=== PATIENT | female | born 1985 ===

== ENCOUNTER 2020-06-28 10:39 | Outpatient (REF) | payer MEDICAID, SELFPAY ==
[2020-06-29 12:29] LABS: CT PCR NOT DETECTED (Not Detect.); NG PCR NOT DETECTED (Not Detect.)
[2020-06-29 15:29] LABS: BV Int Neg Control Negative (Negative); BV Int Pos Control Positive (Positive)
== END 2020-06-28 10:40 | disposition home or self-care (01) ==
LOC: HO.LAB 10:39
PROVIDERS: PCP Pediatrics; Referring Provider Pediatrics; Visit Provider Advanced Practice Midwife
DX: Z12.4 Encounter for screening for malignant neoplasm of cervix (principal); R10.2 Pelvic and perineal pain; Z20.2 Contact with and (suspected) exposure to infections with a predominantly sexual mode of transmission; N89.8 Other specified noninflammatory disorders of vagina
CPT/HCPCS: 87480; 87491; 87510; 87591; 87660; 99213

== ENCOUNTER 2020-07-31 15:53 | Outpatient (REF) | payer MEDICAID, SELFPAY ==
--- NOTE | 2020-07-31 15:58 | US_ITS ---
EXAMINATION: ULTRASOUND PELVIS COMPLETE. CLINICAL INFORMATION: Pelvic and perineal pain. COMPARISON: None TECHNIQUE: Transabdominal and transvaginal ultrasound the pelvis is performed. FINDINGS: The uterus is heterogeneous, anteverted measuring 8.6 cm in length, 4.6 cm in AP and 5.5 cm wide. Endometrial thickness is 0.4 cm. Right ovary measures 3.5 x 2.8 x 2.5 cm and volume 12.8 mL. There is anechoic cyst measuring 2.2 x 2.1 x 2.2 cm. Left ovary measures 2.4 x 2.0 x 1.5 cm and volume 3.8 mL. There is no free fluid in cul-de-sac. US/US pelvic complete IMPRESSION: Heterogeneous uterus but otherwise unremarkable. Simple cyst right ovary.
--- NOTE | 2020-07-31 15:58 | US_ITS ---
EXAMINATION: ULTRASOUND PELVIS COMPLETE. CLINICAL INFORMATION: Pelvic and perineal pain. COMPARISON: None TECHNIQUE: Transabdominal and transvaginal ultrasound the pelvis is performed. FINDINGS: The uterus is heterogeneous, anteverted measuring 8.6 cm in length, 4.6 cm in AP and 5.5 cm wide. Endometrial thickness is 0.4 cm. Right ovary measures 3.5 x 2.8 x 2.5 cm and volume 12.8 mL. There is anechoic cyst measuring 2.2 x 2.1 x 2.2 cm. Left ovary measures 2.4 x 2.0 x 1.5 cm and volume 3.8 mL. There is no free fluid in cul-de-sac. US/US transvaginal IMPRESSION: Heterogeneous uterus but otherwise unremarkable. Simple cyst right ovary.
== END 2020-07-31 15:54 | disposition home or self-care (01) ==
LOC: HO.US 15:53
PROVIDERS: Visit Provider Advanced Practice Midwife
DX: R10.2 Pelvic and perineal pain (principal)
CPT/HCPCS: 76830; 76856

== ENCOUNTER → 2020-08-09 10:36 | Outpatient (BNVA) | payer MEDICAID, SELFPAY | PROVIDERS: Visit Provider Advanced Practice Midwife | DX: Z76.89 Persons encountering health services in other specified circumstances (principal) ==

== ENCOUNTER → 2020-11-16 08:42 | Outpatient (BNVA) | payer MEDICAID, SELFPAY | PROVIDERS: PCP Pediatrics; Visit Provider Physician Assistant ==

== ENCOUNTER → 2021-02-01 08:11 | Outpatient (BNVA) | payer MEDICAID, SELFPAY | PROVIDERS: PCP Pediatrics; Visit Provider Physician Assistant | DX: E66.9 Obesity, unspecified (principal); Z98.84 Bariatric surgery status ==

== ENCOUNTER 2022-01-30 14:07 | Outpatient (REF) | payer OTHER, SELFPAY ==
[2022-01-30 17:56] LABS: CT PCR NOT DETECTED (Not Detect.); NG PCR NOT DETECTED (Not Detect.)
[2022-01-31 11:09] LABS: BV Int Neg Control Negative (Negative); BV Int Pos Control Positive (Positive)
== END 2022-01-30 14:08 | disposition home or self-care (01) ==
LOC: HO.LAB 14:07
PROVIDERS: Visit Provider Advanced Practice Midwife
DX: N92.0 Excessive and frequent menstruation with regular cycle (principal); N94.6 Dysmenorrhea, unspecified; N89.8 Other specified noninflammatory disorders of vagina; F52.31 Female orgasmic disorder
CPT/HCPCS: 81025; 87480; 87491; 87510; 87591; 87660

== ENCOUNTER 2022-02-20 13:16 | Outpatient (REF) | payer SELFPAY ==
--- NOTE | ~2022-02-20 | US_ITS ---
EXAMINATION: US PELVIS CLINICAL INFORMATION: Excessive and frequent menstruation. COMPARISON: None TECHNIQUE: Ultrasound of the pelvis is performed using both transabdominal and transvaginal transducers along with Doppler. Transvaginal imaging is performed due to inadequate visualization transabdominally. FINDINGS: UTERUS: The uterus is anteverted and measures 9.6 cm in length, 4.7 cm in AP and 5.5 cm in transverse dimension. The double wall endometrial thickness is 0.97 cm. The uterus is smooth in contour and has normal myometrial echogenicity. No visible fibroid. ADNEXA: Both ovaries are visualized. There is normal color flow to the adnexa. There is no ovarian torsion. There is no pelvic ascites or fluid collection. Right ovary measures 2.7 x 1.5 x 2.2 cm and volume 4.6 mL. There is an anechoic cyst in the right adnexa lateral to the ovary measuring 2.3 x 2.2 x 2.6 cm. The ovary is unremarkable. Previously right ovary measured 3.5 x 2.8 x 2.5 cm and volume 12.8 mL. Left ovary measures 2.8 x 1.6 x 1.5 cm and volume 3.5 mL. There is a paraovarian cyst lateral to the ovary measuring 0.6 x 0.6 x 0.6 cm. Previously left ovary measured 2.4 x 2.0 x 1.5 cm and volume 3.8 mL. There is no free fluid in the cul-de-sac. There is no free fluid in the cul-de-sac. US/US pelvic and transvaginal IMPRESSION: Bilateral paraovarian cyst. The ovaries are unremarkable. The uterus is unremarkable. There is no free fluid in cul-de-sac.
== END 2022-02-20 13:17 | disposition home or self-care (01) ==
LOC: HO.HMGCX 13:16
PROVIDERS: Visit Provider Advanced Practice Midwife
DX: N92.0 Excessive and frequent menstruation with regular cycle (principal)
CPT/HCPCS: 76830; 76856

== ENCOUNTER 2022-03-03 08:09 | Outpatient (REF) | payer SELFPAY ==
[2022-03-03 08:55] LABS: Hematocrit 34.2 % (37.0-47.0); Hemoglobin 9.9 g/dl (12.0-16.0); Mean Corpuscular HGB Conc 28.9 g/dl (31.0-35.0); Mean Corpuscular Hemoglobin 22.5 pg (27.0-33.0); Mean Corpuscular Volume 77.7 fL (80.0-98.0); Mean Platelet Volume 10.7 fL (9.4-12.3); Platelet Count 312 X10*3/uL (160-400); Red Cell Distribution Width 15.2 % (11.0-16.0); White Blood Count 6.3 X10*3/uL (4.8-10.8)
[2022-03-03 09:36] LABS: HBc Num1 0.07 S/CO (0.00-0.79); HIV AB/AG Nonreactive (Nonreactive); HIV Num 1 0.09 S/CO (0.00-0.99); Hepatitis B Core Antibody Nonreactive (Nonreactive); ~HepC Num1 0.09 S/CO (0.00-0.79); ~Hepatitis C Antibody Nonreactive (Nonreactive)
[2022-03-03 09:40] LABS: Thyroid Stimulating Hormone 0.39 uIU/mL (0.32-4.0)
[2022-03-03 10:07] LABS: Syphilis Screen Nonreactive (Nonreactive)
== END 2022-03-03 08:10 | disposition home or self-care (01) ==
LOC: HO.LAB 08:09
PROVIDERS: Visit Provider Advanced Practice Midwife
DX: Z11.3 Encounter for screening for infections with a predominantly sexual mode of transmission (principal); Z11.4 Encounter for screening for human immunodeficiency virus [HIV]; Z20.2 Contact with and (suspected) exposure to infections with a predominantly sexual mode of transmission; N92.1 Excessive and frequent menstruation with irregular cycle
CPT/HCPCS: 36415; 84443; 85027; 86704; 86780; 86803; 87389

== ENCOUNTER 2023-07-17 10:00 | Outpatient (AMB) | payer OTHER, SELFPAY ==
--- NOTE | 2023-07-17 08:49 | A.OFFVIS_ITS ---
Intake VS Expanded 07/17/23 10:06 Height 5 ft 6 in Weight 193 lb BMI 31.1 Intake Visit Reasons: VIDEO GBP 02/01/19 Allergies codeine [CODEINE] Allergy (Unknown, Verified 02/27/22 14:02) THROAT SWELLING latex [LATEX] Allergy (Unknown, Verified 02/27/22 14:02) HIVES penicillin V Allergy (Unknown, Verified 02/27/22 14:02) redness and itching Penicillins [PENICILLINS] Allergy (Unknown, Verified 02/27/22 14:02) HIVES pollen extracts [POLLEN] Allergy (Unknown, Verified 02/27/22 14:02) ITCHY EYES, SNEEZING Medication List - Last Reconciled 07/17/23 by Vero Sanabria PA-C amitriptyline 10 mg PO BEDTIME gabapentin 600 mg PO DAILY PRN hydroxyzine HCl 25 mg PO pantoprazole 40 mg PO DAILY HPI HPI Comments History of Present Illness Details Patient is now 4.5 years s/p GBP. 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 No post op labs done for at least 2 years, last hgb February 2023 was 9.9. She states she is at her goal weight -- had multiple plastic surgeries done. Complains of epigastric pain for 2 years, moved back from [place]. Worse with acidic foods, also very stressed she forgets to eat often. Nausea occasionally, will spit up clear fluid from pain. No ETOH, smokes marijuana nightly Wakes 6am and bed at 8pm. Works 7am - 3pm , and sometiems does doubles. 7am - egg, siegel in a wrap. Coffee with 2 cream and 2 sugar 3pm - rice with meat and vegetables - f ist full , 15 minutes. water 6pm - coffee again 7 pm - eats at work - vegetables and robel t Exercise - none PFSH Medical History Hx of obesity Lupus Surgical History H/O neck surgery Hx of cholecystectomy Hx of tonsillectomy Hx of tubal ligation Family History Father Diabetes mellitus Hx of heart disorder Mother High cholesterol Social History Alcohol intake: current Alcohol intake frequency: holidays/special occasions only Female Reproductive History Menstrual Age of Menarche: 10 Assessment & Plan Assessment & Plan (1) Epigastric pain: Code(s): R10.13 - Epigastric pain Plan: 4.5 years s/p GBP, with epigastric pain and poor eating habits. At her goal weight. Post op labs ordered Stop smoking marijuana, edible OK. 85 gram protein per day 7 am - 2 eggs with low carb wrap, 1 turkey sausage-20 - 30 minutes 8 am coffee - 4 oz 11 am - protein shake - 1 hour 3 pm - 3 oz protein, 3 oz vegetable - 20 - 30 minutes 6-7 pm - belizean yogurt or 2 oz protein Restart pantoprazole and carafate. Follow up with me in 1 month, will re-evaluate symptoms at that time.I spent 30 minutes in total speaking with the patient via video conference counseling , reviewing records and charting in patients chart. . (2) Obesity: Code(s): E66.9 - Obesity, unspecified (3) Hx of gastric bypass: Code(s): Z98.84 - Bariatric surgery status Medications: New pantoprazole 40 mg PO DAILY 30 tabs 3RF sucralfate (Carafate) 1 g PO BID 60 tabs 3RF Telehealth Telehealth Location of provider rendering services: practice address Location of patient: address on file Patient Identification confirmed using: Name, : Yes Telehealth method: video Patient verbally consented to treatment: Yes Patient verbally consented to billing insurance company: Yes Patient informed of any privacy concerns related to visit: Yes Coding Level of Care Code Tele Est Pt Level 4 (70654) Diagnoses Epigastric pain R10.13 Obesity E66.9 Hx of gastric bypass Z98.84
[2023-07-17 10:06] VITALS: BMI 31.1
== END 2023-07-17 10:30 | disposition home or self-care (01) ==
LOC: HO.HBS 10:28
PROVIDERS: PCP Internal Medicine; Visit Provider Physician Assistant
DX: R10.13 Epigastric pain (principal); E66.9 Obesity, unspecified; Z98.84 Bariatric surgery status
CPT/HCPCS: 99214

== ENCOUNTER → 2023-07-17 10:00 | Outpatient (BNVA) | payer OTHER, SELFPAY | PROVIDERS: PCP Internal Medicine; Visit Provider Physician Assistant ==

== ENCOUNTER 2023-08-18 10:43 | Outpatient (REF) | payer OTHER, SELFPAY ==
[2023-08-19 06:44] LABS: CT PCR NOT DETECTED (Not Detect.); NG PCR DETECTED (Not Detect.)
[2023-08-19 12:21] LABS: BV Int Neg Control Negative (Negative); BV Int Pos Control Positive (Positive)
[2023-08-21 02:04] LABS: HPV mRNA E6/E7 rflx Not Detected (Not Detected)
== END 2023-08-18 10:44 | disposition home or self-care (01) ==
LOC: HO.LAB 10:43
PROVIDERS: PCP Internal Medicine; Visit Provider Advanced Practice Midwife
DX: Z01.419 Encounter for gynecological examination (general) (routine) without abnormal findings (principal); I25.2 Old myocardial infarction; Z98.84 Bariatric surgery status; Z98.890 Other specified postprocedural states; Z98.51 Tubal ligation status; Z20.2 Contact with and (suspected) exposure to infections with a predominantly sexual mode of transmission; Z79.899 Other long term (current) drug therapy
CPT/HCPCS: 0353U; 87480; 87510; 87624; 87660; 88142; 99396

== ENCOUNTER 2023-08-18 10:43 | Outpatient (AMB) | payer OTHER, SELFPAY ==
[2023-08-18 11:04] VITALS: BP 128/78; BMI 32.6
--- NOTE | 2023-08-18 11:04 | A.OFFVIS_ITS ---
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 Required: No Information Interpreted: clinical only Music Researcher: Music Researcher Present Allergies codeine [CODEINE] Allergy (Unknown, Verified 08/18/23 11:05) THROAT SWELLING latex [LATEX] Allergy (Unknown, Verified 08/18/23 11:05) HIVES penicillin V Allergy (Unknown, Verified 08/18/23 11:05) redness and itching Penicillins [PENICILLINS] Allergy (Unknown, Verified 08/18/23 11:05) HIVES pollen extracts [POLLEN] Allergy (Unknown, Verified 08/18/23 11:05) ITCHY EYES, SNEEZING Medication List - Last Reconciled 08/18/23 by Jennifer Sin CNM amitriptyline 10 mg PO BEDTIME gabapentin 600 mg PO DAILY PRN hydroxyzine HCl 25 mg PO pantoprazole 40 mg PO DAILY sucralfate (Carafate) 1 g PO BID HPI 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 She would like to be checked for STIs she wonders if she has a UTI or a yeast infection she does find herself urinating frequently but then again she holds her urine at work and then she sometimes leaks and that is why she wears panty liners chronically. She does have some white clumpy discharge though she is not really itching per se. She had considered tubal ligation reverrsal but it was only because her current partner does not have children but she has grand children and she has decided she does not want to have it done. [facility] Medical History (Updated 08/18/23 @ 12:36 by Jennifer Sin CNM) Lupus Hx of obesity Surgical History (Updated 08/18/23 @ 12:30 by Jennifer Sin CNM) H/O neck surgery Hx of tubal ligation Hx of cholecystectomy Hx of tonsillectomy Hx of gastric bypass Family History Father Diabetes mellitus Hx of heart disorder Mother High cholesterol Social History Alcohol intake: current Alcohol intake frequency: holidays/special occasions only Female Reproductive History Menstrual Age of Menarche: 10 Date of last menstrual period: 08/04/23 control method: permanent sterilization Total pregnancies: 4 Full term: 4 History of abnormal pap smear: No (2016 neg.) Other: Vagina pink and moist external exam shows evidence of chronic use of panty liners. Cervix multiparous pink moist discharge is clear with some white clumps no evidence of erythema or otherwise abnormal discharge uterus is small anteverted mobile nontender adnexa nontender not enlarged good tone with Kegel. Physical Exam Vital Signs: Last Vital Signs BP 128/78 08/18/23 11:04 BMI result Body Mass Index 32.6 Assessment & Plan Assessment & Plan (1) Potential exposure to STD: Code(s): Z20.2 - Contact with and (suspected) exposure to infections with a predominantly sexual mode of transmission (2) S/P panniculectomy: Comment: March 2022 [place] Code(s): Z98.890 - Other specified postprocedural states (3) S/P brachioplasty: Comment: [place] Code(s): Z98.890 - Other specified postprocedural states (4) Hx of gastric bypass: Code(s): Z98.84 - Bariatric surgery status (5) Hx of tubal ligation: Code(s): Z98.51 - Tubal ligation status (6) Well woman exam with routine gynecological exam: Code(s): Z01.419 - Encounter for gynecological examination (general) (routine) without abnormal findings (7) Cervical cancer screening: Code(s): Z12.4 - Encounter for screening for malignant neoplasm of cervix (8) Hx of acute myocardial infarction: Comment: Patient states it was last month evaluated at [facility]. Cardiac follow-up is pending... On a baby aspirin every day. Code(s): I25.2 - Old myocardial infarction Plan -----Discussed in this visit the following: healthy balanced diet, regular and consistent exercise, getting recommended health screens, doing the best she can for her particular health concerns, kegel exercises, pap smear screening and followup recommendations, mammography screening and SBE, normal changes in cycles in her life stage--- . Mammogram ordered after patient left. Reviewed her consideration of tubal reversal she has decided against it at this point. Stressed the need to take care of her main issues with health status post her heart attack last month. She did have 1 visit with her primary care provider after that but missed a cardiology appointment last week and will reschedule stressed the need to take care of her health. Stressed checking out what exercise she can do after she sees the clothes wringer. She is taking a baby aspirin every day per ER instructions from [facility] Testing ordered for STIs per her request. Reviewed recommendations to not wear panty liners. Patient to observe her urinary symptoms and if she does have symptoms of UTI she should check that out with her primary care provider. Discussed not holding her urine as a routine during work days which is the most common scenario and to try in void for as frequently as she needs to void and to continue doing Kegel's she has good strength with her Kegel's. Discussed that the lifelong strain of being 350 lb for many many years can inherently lead to some pelvic floor weakness but she is doing very well with her Kegel's. Orders: Orders Hepatitis B Surface Antigen Today Z20.2 - Contact with and (suspected) exposure to infections with a predominantly sexual mode of transmission Hepatitis C Antibody Today Z20.2 - Contact with and (suspected) exposure to infections with a predominantly sexual mode of transmission HIV Ab/Ag Today Z20.2 - Contact with and (suspected) exposure to infections with a predominantly sexual mode of transmission Syphilis Screen Today Z20.2 - Contact with and (suspected) exposure to infections with a predominantly sexual mode of transmission MM tomosynthesis screening BI Today Z01.419 - Encounter for gynecological examination (general) (routine) without abnormal findings, Z12.31 - Encounter for screening mammogram for malignant neoplasm of breast, Z12.4 - Encounter for screening for malignant neoplasm of cervix, Z98.51 - Tubal ligation status Coding Level of Care Code Est Pt Prev Care 40-64y(66348) Diagnoses Potential exposure to STD Z20.2 S/P panniculectomy Z98.890 S/P brachioplasty Z98.890 Hx of gastric bypass Z98.84 Hx of tubal ligation Z98.51 Well woman exam with routine gynecological exam Z01.419 Cervical cancer screening Z12.4 Hx of acute myocardial infarction I25.2
== END 2023-08-18 12:17 | disposition home or self-care (01) ==
LOC: HO.HWSM 10:43
PROVIDERS: PCP Internal Medicine; Visit Provider Advanced Practice Midwife
DX: Z01.419 Encounter for gynecological examination (general) (routine) without abnormal findings (principal); Z20.2 Contact with and (suspected) exposure to infections with a predominantly sexual mode of transmission
CPT/HCPCS: 99396

== ENCOUNTER 2023-08-21 09:05 | Outpatient (AMB) | payer OTHER, SELFPAY ==
--- NOTE | 2023-08-25 10:20 | AM.OFFVISNUR ---
Intake Intake Visit Reasons: Treatment for Gonorrhea Intake Note: Pt is here for Gentamicin 240 mg IM once to treat gonorrhea +. Pt is allergic to PCN. Natural Developer Required: No Allergies codeine [CODEINE] Allergy (Unknown, Verified 08/18/23 11:05) THROAT SWELLING latex [LATEX] Allergy (Unknown, Verified 08/18/23 11:05) HIVES penicillin V Allergy (Unknown, Verified 08/18/23 11:05) redness and itching Penicillins [PENICILLINS] Allergy (Unknown, Verified 08/18/23 11:05) HIVES pollen extracts [POLLEN] Allergy (Unknown, Verified 08/18/23 11:05) ITCHY EYES, SNEEZING Is last menstrual period known: Yes Post menopausal: No Patient : No Nursing Note Pt is here on 08/21/23 for Gentamicin injection. Pt needs treatment for NG infection and is allergic to Penicillin. Order is for Gentamicin 240 mg IM x1. Medication received is for 40 mg/ml. Pt received injection which was split into 2--3 ml doses for total dose of 6 mi=128 mg. Pt tolerated injections well and she took her one time dose of Doxycycline 2 gm po x1 dose today. Pt will return for REDD 09/04/23. Pt advised no IC until her partner has been treated as well and both partners have received a neg REDD. Pt verbalizes understanding and agrees with plan. No further questions. 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 120 mg IM RGM 3 mL [id number] 07/07/24 40424-578-15 [employer] 120 mg IM LGM 3 mL [id number] 07/07/24 38513-058-76 [employer] Coding Level of Care Code Established Pt Est Pt Level 1 (66961) Patient Type Established History Problem Focused Medical Decision Making Straight Forward Time Spent (min) 20 Assessment & Plan Assessment & Plan Orders: Orders AMB Gentamicin Injection Patient Supplied 08/21/23 A54.9 - Gonococcal infection, unspecified Medications: Changed From gentamicin 80 mg (2 mL) IM Q8H 6 mL 0RF A54.9 - Gonococcal infection, unspecified To gentamicin 80 mg (2 mL) IM ONCE 6 mL 0RF 1 day A54.9 - Gonococcal infection, unspecified
== END 2023-08-21 12:40 | disposition home or self-care (01) ==
LOC: HO.HWS 09:06
PROVIDERS: PCP Internal Medicine; Visit Provider Advanced Practice Midwife
DX: A54.9 Gonococcal infection, unspecified (principal)

== ENCOUNTER 2023-08-21 09:05 | Outpatient (REF) | payer OTHER, SELFPAY ==
[2023-08-21 12:19] LABS: Syphilis Screen Nonreactive (Nonreactive)
[2023-08-21 12:21] LABS: HBsAGNum1 0.31 S/CO (0.00-0.99); HIV AB/AG Nonreactive (Nonreactive); HIV Num 1 0.05 S/CO (0.00-0.99); Hepatitis B Surface Antigen Negative (Negative); ~HepC Num1 0.14 S/CO (0.00-0.79); ~Hepatitis C Antibody Nonreactive (Nonreactive)
== END 2023-08-21 09:06 | disposition home or self-care (01) ==
LOC: HO.LAB 09:05
PROVIDERS: PCP Internal Medicine; Visit Provider Advanced Practice Midwife
DX: E66.9 Obesity, unspecified (principal); Z71.3 Dietary counseling and surveillance; Z98.84 Bariatric surgery status; Z79.899 Other long term (current) drug therapy; A54.9 Gonococcal infection, unspecified; Z20.2 Contact with and (suspected) exposure to infections with a predominantly sexual mode of transmission
CPT/HCPCS: 36415; 86780; 86803; 87340; 87389; 96372; 99211; J1580

== ENCOUNTER 2023-08-21 10:30 | Outpatient (AMB) | payer OTHER, SELFPAY ==
--- NOTE | 2023-08-21 10:42 | A.OFFVIS_ITS ---
Intake Intake Visit Reasons: (VIDEO) [facility] 02/01/19 Allergies codeine [CODEINE] Allergy (Unknown, Verified 08/18/23 11:05) THROAT SWELLING latex [LATEX] Allergy (Unknown, Verified 08/18/23 11:05) HIVES penicillin V Allergy (Unknown, Verified 08/18/23 11:05) redness and itching Penicillins [PENICILLINS] Allergy (Unknown, Verified 08/18/23 11:05) HIVES pollen extracts [POLLEN] Allergy (Unknown, Verified 08/18/23 11:05) ITCHY EYES, SNEEZING Medication List - Last Reconciled 08/21/23 by Vero Sanabria PA-C amitriptyline 10 mg PO BEDTIME azithromycin 500 mg PO DAILY 1 day gabapentin 600 mg PO DAILY PRN gentamicin 80 mg (2 mL) IM Q8H hydroxyzine HCl 25 mg PO pantoprazole 40 mg PO DAILY sucralfate (Carafate) 1 g PO BID HPI HPI Comments History of Present Illness Details [facility] January 2019. Seen last month with epigastric pain and poor eating habits. Does not have regular housing at present. Does nothave a scale and does not have current weight. Post op labs ordered - will get them drawn today Smoking less marijuana,, stopped coffee, taking pantoprazole and carafat - no further reflux. 85 gram protein per day -- 7 am - Premier RTD shake with coffee in it. 10am - guyanese yogurt 12 - 1pm - skips this 3d, if does eat - has chicken soup with noodles - 4 or 8 oz's ?? 3 pm - fish and vegetables -- ? portion size 6-7 pm - small salad - portion size- veg etables and ranch dressing Exercise - none PFSH Medical History (Updated 08/19/23 @ 16:15 by Jennifer Sin CNM) Lupus Hx of obesity Surgical History (Updated 08/18/23 @ 12:30 by Jennifer Sin CNM) H/O neck surgery Hx of tubal ligation Hx of cholecystectomy Hx of tonsillectomy Hx of gastric bypass Family History Father Diabetes mellitus Hx of heart disorder Mother High cholesterol Social History Alcohol intake: current Alcohol intake frequency: holidays/special occasions only Female Reproductive History Menstrual Age of Menarche: 10 Assessment & Plan Assessment & Plan (1) Obesity: Code(s): E66.9 - Obesity, unspecified Plan: Pt is presently homeless but hopes to have housing in the next few weeks. She will get her labs drawn this week, purchase a smart scale and then start sending me her weights weekly. Meal plan changes - for now measure meals in 8 forks each protien and vegetable. Will discuss more details when she is more stable. Will start exercise routine once she has housing. Next appt with me in 1 month Patient is still obese and is not considered stable at this time. I spent 30 minutes in total speaking with the patient via video conference counseling , reviewing records and charting in patients chart. . (2) Hx of gastric bypass: Code(s): Z98.84 - Bariatric surgery status Plan see above Orders: Orders Hemoglobin A1c Today E66.9 - Obesity, unspecified, Z98.84 - Bariatric surgery status Complete Blood Count Auto Diff Today E66.9 - Obesity, unspecified, Z98.84 - Bariatric surgery status Lipid Panel Today E66.9 - Obesity, unspecified, Z98.84 - Bariatric surgery status IRON PROFILE Today E66.9 - Obesity, unspecified, Z98.84 - Bariatric surgery status Vitamin B12 and Folate Today E66.9 - Obesity, unspecified, Z98.84 - Bariatric surgery status Vitamin A Today E66.9 - Obesity, unspecified, Z98.84 - Bariatric surgery status TSH reflex Free T4 Today E66.9 - Obesity, unspecified, Z98.84 - Bariatric surgery status Insulin Today E66.9 - Obesity, unspecified, Z98.84 - Bariatric surgery status Comprehensive Met. Panel Today E66.9 - Obesity, unspecified, Z98.84 - Bariatric surgery status Zinc Today E66.9 - Obesity, unspecified, Z98.84 - Bariatric surgery status C Reactive Protein Today E66.9 - Obesity, unspecified, Z98.84 - Bariatric surgery status Vitamin B1 Today E66.9 - Obesity, unspecified, Z98.84 - Bariatric surgery status Ferritin Today E66.9 - Obesity, unspecified, Z98.84 - Bariatric surgery status Vitamin D 25-OH Total Today E66.9 - Obesity, unspecified, Z98.84 - Bariatric surgery status Medications: Refilled pantoprazole 40 mg PO DAILY 30 tabs 3RF Telehealth Telehealth Location of provider rendering services: practice address Location of patient: address on file Patient Identification confirmed using: Name, : Yes Telehealth method: voice only Patient verbally consented to treatment: Yes Patient verbally consented to billing insurance company: Yes Patient informed of any privacy concerns related to visit: Yes Coding Level of Care Code Tele Est Pt Level 4 (27389) Diagnoses Obesity E66.9 Hx of gastric bypass Z98.84
== END 2023-08-21 11:03 | disposition home or self-care (01) ==
LOC: HO.HBS 10:54
PROVIDERS: PCP Internal Medicine; Visit Provider Physician Assistant
DX: E66.9 Obesity, unspecified (principal); Z98.84 Bariatric surgery status
CPT/HCPCS: 99214

== ENCOUNTER 2023-08-25 12:30 | Outpatient (REF) | payer OTHER, SELFPAY ==
--- NOTE | ~2023-08-25 | MM_ITS ---
EXAMINATION: MM SCREENING DIGITAL BREAST TOMOSYNTHESIS, BILATERAL CLINICAL INFORMATION: Screening. Asymptomatic. The patient is status post bilateral breast reduction. COMPARISON: Mammography: This study is compared with prior exams dating back to 2020. There are no interval mammograms. TECHNIQUE: Digital breast tomosynthesis is performed in both the craniocaudal and mediolateral oblique views along with computer-aided detection (CAD). Synthesized 2D images are generated from the tomosynthesis. FINDINGS: There are scattered areas of fibroglandular density (ACR BI-RADS breast composition Category b). There are no significant masses, abnormal calcifications, or other abnormalities. Post reduction changes are present in each breast. MM/MM tomosynthesis screening BI IMPRESSION: No mammographic evidence of malignancy. ASSESSMENT: BI-RADS BI-RADS 2 - Benign Findings RECOMMENDATION: Routine annual mammography screening. 1 year F/U This examination should not preclude the clinical evaluation of a suspicious palpable abnormality. This patient's information was entered into a reminder system with a target due date for their next mammogram.
== END 2023-08-25 12:31 | disposition home or self-care (01) ==
LOC: HO.MAMMO 12:30
PROVIDERS: PCP Internal Medicine; Visit Provider Advanced Practice Midwife
DX: Z12.31 Encounter for screening mammogram for malignant neoplasm of breast (principal)
CPT/HCPCS: 77063; 77067

== ENCOUNTER → 2023-08-25 14:30 | Outpatient (BNV) | payer OTHER, SELFPAY | PROVIDERS: PCP Internal Medicine; Visit Provider Radiology Diagnostic Radiology | DX: Z12.31 Encounter for screening mammogram for malignant neoplasm of breast (principal) | CPT/HCPCS: 77063; 77067 ==

== ENCOUNTER 2023-08-26 08:42 | Outpatient (REF) | payer OTHER, SELFPAY ==
[2023-08-26 08:56] LABS: MANUAL DIFF FLAG NO
[2023-08-26 09:08] LABS: Basophils Absolute Auto 0.1 X10*3/uL (0.0-0.2); Basophils Percent Auto 0.9 % (0-2); Eosinophils Absolute Auto 0.2 X10*3/uL (0.0-0.4); Eosinophils Percent Auto 2.3 % (0-4); Hematocrit 32.4 % (37.0-47.0); Hemoglobin 9.5 g/dl (12.0-16.0); Imm Gran Abs Auto 0.02 X10*3/uL (0.00-0.03); Imm Gran Pct Auto 0.3 % (0.0-0.4); Lymphocytes Absolute Auto 2.1 X10*3/uL (1.2-4.9); Lymphocytes Percent Auto 31.9 % (20-40); Mean Corpuscular HGB Conc 29.3 g/dl (31.0-35.0); Mean Corpuscular Hemoglobin 22.1 pg (27.0-33.0); Mean Corpuscular Volume 75.3 fL (80.0-98.0); Mean Platelet Volume 10.5 fL (9.4-12.3); Monocytes Absolute Auto 0.5 X10*3/uL (0.1-1.2); Monocytes Percent Auto 6.9 % (2-11); Neutrophils Absolute Auto 3.8 x10*3/uL (2.0-8.3); Neutrophils Percent Auto 57.7 % (45-73); Platelet Count 288 X10*3/uL (160-400); Red Cell Distribution Width 17.9 % (11.0-16.0); White Blood Count 6.5 X10*3/uL (4.8-10.8)
[2023-08-26 09:22] LABS: Estimated Average Glucose 105 mg/dL; Hemoglobin A1c % 5.3 % (<6.0)
[2023-08-26 09:58] LABS: Alanine Aminotransferase 14 U/L (0-31); Albumin Level 4.1 g/dL (3.5-5.0); Alkaline Phosphatase 79 U/L (39-117); Anion Gap 12 (12-20); Aspartate Amino Transferase 17 U/L (5-31); Bilirubin Total 0.3 mg/dL (0.0-1.0); Blood Urea Nitrogen 10 mg/dL (9-16); C Reactive Protein < 0.10 mg/dL (< or = 0.50); Calcium 9.2 mg/dL (8.4-10.2); Carbon Dioxide 25 mmol/L (22-29); Chloride 108 mmol/L (96-108); Cholesterol 168 mg/dL (<200); Estimated Glomerular Filt Rate > 60; Glucose Random 83 mg/dL (60-115); HDL Cholesterol 51 mg/dL (>40); Iron 19 mcg/dL (30-160); LDL Cholesterol Calculated 96 mg/dL (<100); Percent Iron Saturation 5 % (15-50); Potassium 4.4 mmol/L (3.3-5.1); Sodium 141 mmol/L (135-145); Total Iron Binding Capacity 348 mcg/dL (228-428); Total Protein 7.3 g/dL (6.5-8.0); Triglycerides 105 mg/dL (<150); Unsaturated Iron Binding 329 ug/dL
[2023-08-26 10:02] LABS: Ferritin 8 ng/mL (10-250); Insulin 9 uU/mL (2-29); TSH reflex Free T4 0.42 uIU/mL (0.32-4.0); Vitamin D 25-OH Total 26.2 ng/mL (>30)
[2023-08-26 10:05] LABS: Folate 8.2 ng/mL (> or = 4.0); Vitamin B12 401 pg/mL (200-900)
[2023-08-31 14:58] LABS: Vitamin B1 9 nmol/L (8-30)
[2023-08-31 19:54] LABS: Vitamin A 36 mcg/dL (38-98)
[2023-09-01 16:23] LABS: Zinc 66 mcg/dL (60-130)
== END 2023-08-26 08:43 | disposition home or self-care (01) ==
LOC: HO.LAB 08:42
PROVIDERS: PCP Internal Medicine; Visit Provider Physician Assistant
DX: E66.9 Obesity, unspecified (principal); Z98.84 Bariatric surgery status
CPT/HCPCS: 36415; 80053; 80061; 82306; 82607; 82728; 82746; 83036; 83525; 83540; 84425; 84443; 84590; 84630; 85025; 86140

== ENCOUNTER 2023-09-04 13:17 | Outpatient (REF) | payer OTHER, SELFPAY ==
[2023-09-09 12:41] LABS: CT PCR NOT DETECTED (Not Detect.); NG PCR NOT DETECTED (Not Detect.)
== END 2023-09-04 13:18 | disposition home or self-care (01) ==
LOC: HO.LNP 13:17
PROVIDERS: PCP Internal Medicine; Visit Provider Advanced Practice Midwife
DX: Z12.4 Encounter for screening for malignant neoplasm of cervix (principal); A54.9 Gonococcal infection, unspecified; D64.9 Anemia, unspecified; Z98.84 Bariatric surgery status; Z98.890 Other specified postprocedural states; Z71.2 Person consulting for explanation of examination or test findings
CPT/HCPCS: 0353U; 99212

== ENCOUNTER 2023-09-04 13:17 | Outpatient (AMB) | payer OTHER, SELFPAY ==
[2023-09-04 13:20] VITALS: BP 126/80; BMI 32.3
--- NOTE | 2023-09-04 13:20 | MHC.OFFVIS ---
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 Required: No Information Interpreted: non-clinical & clinical Steam Room Attendant: Steam Room Attendant Present (Aidyn) Allergies codeine [CODEINE] Allergy (Unknown, Verified 09/04/23 13:20) THROAT SWELLING latex [LATEX] Allergy (Unknown, Verified 09/04/23 13:20) HIVES penicillin V Allergy (Unknown, Verified 09/04/23 13:20) redness and itching Penicillins [PENICILLINS] Allergy (Unknown, Verified 09/04/23 13:20) HIVES pollen extracts [POLLEN] Allergy (Unknown, Verified 09/04/23 13:20) ITCHY EYES, SNEEZING Medication List - Last Reconciled 09/04/23 by Jennifer Sin CNM amitriptyline 10 mg PO BEDTIME azithromycin 500 mg PO DAILY 1 day cholecalciferol (vitamin D3) 25 mcg PO DAILY gabapentin 600 mg PO DAILY PRN gentamicin 80 mg (2 mL) IM ONCE 1 day hydroxyzine HCl 25 mg PO iron,carbonyl-vitamin C 65 mg iron- 125 mg (Vitron-C) 1 tab PO BEDTIME multivitamin 1 tab PO DAILY pantoprazole 40 mg PO DAILY sucralfate (Carafate) 1 g PO BID vitamin A palmitate 3,000 mcg PO DAILY Is last menstrual period known: Yes Last menstrual period: 08/30/23 Post menopausal: No HPI 2 week lucrecia HPI Details Patient is here for 2 week test of cure from being treated for gonorrhea she has a state id penicillin allergic status so she was treated with alternative treatments per CDC guidelines with azithromycin and gentamicin her partner went to another site for treatment and was treated with penicillin presumably as it was 1 shot She has ending her menses they are not particularly heavy but there clotty but she does have severe anemia and is being treated with different forms of iron. She recently had bariatric surgery so that is possibly part of the picture. She also recently had a mammogram and wants to know those results. She says she and her partner have not had sex at all. And she is waiting for this to be all taking care of she says both of them had been on a break from each other and saw other people and that time and she she presumes that is where the gonorrhea came from. [facility] Medical History Lupus Hx of obesity Surgical History H/O neck surgery Hx of tubal ligation Hx of cholecystectomy Hx of tonsillectomy Hx of gastric bypass Family History Father Diabetes mellitus Hx of heart disorder Mother High cholesterol Social History Alcohol intake: current Alcohol intake frequency: holidays/special occasions only Female Reproductive History Menstrual Age of Menarche: 10 Duration of menses: 6-7 days Date of last menstrual period: 08/30/23 control method: other (tubal ligation) Date of last pap smear: 08/19/23 (negative) History of STI: Yes Date of Mammogram: 08/25/23 Physical Exam Vital Signs: Last Vital Signs BP 126/80 09/04/23 13:20 BMI result Body Mass Index 32.3 Other: Discharge consistent with end of menses. External Female Exam: normal external appearance and normal appearance of the urethra Speculum Exam - Vagina: normal appearance of the vagina and normal vaginal discharge Speculum Exam - Cervix: normal appearance of the cervix and Cervical os closed Results Reviewed Results Reviewed: Name: Viktoria Henry Age/Sex: 38/F : 1985 Unit#: [id number] Attend Dr: Jennifer Sin CNM Re08/18/23 Status: DEP REF Location: .LAB Disch: SPEC : [id number] PHYLICIA: 08/18/23 STATUS: COMP REQ : [id number] RECD: 08/18/[address]: Jennifer Sin CNM COMP: 08/19/2344 ENTERED: 08/18/[address]: MICHAEL SIMPSON MD ORDERED: CT NG by PCR QUERIES: CT NG Source: Vaginal Test Result Flag Reference Site CT PCR NOT DETECTED Not Detect. A not detected test result does not exclude the possibility of infection because test results can be affected by improper specimen collection, concurrent antibiotic therapy, or the number of organisms in the specimen which may be below the sensitivity of the test. As with many diagnostic tests, results from the Xpert CT/NG assay should be interpreted in conjunction with other laboratory and clinical data available to the clinician. Xpert CT/NG performance has not been evaluated in patients less than 14 years of age. The assay should not be used for the evaluation of suspected sexual abuse or for other medico-legal indications. Additional testing is recommended in any circumstance when false positive or false negative results could lead to adverse medical, social or psychological consequences. NG PCR DETECTED A Not Detect. As with many diagnostic tests, results from the Xpert CT/NG assay should be interpreted in conjunction with other laboratory and clinical data available to the clinician. Xpert CT/NG performance has not been evaluated in patients less than 14 years of age. The assay should not be used for the evaluation of suspected sexual abuse or for other medico-legal indications. Additional testing is recommended in any circumstance when false positive or false negative results could lead to adverse medical, social or psychological consequences. These results must be reported by the ordering clinician or clinical facility to the [facility] as required by state law. Patient: Viktoria Henry CMR#: [id number]: 1985Acct:[id number]/Sex: 38 / FADM Date: 08/25/23Loc: HO.MAMMOAttending Dr: Jennifer Sin CNM Ordering Physician: Jennifer Sinesults: 2Benign FindingsDate of Service: 08/25/23Follow Up: 1 Year From Original MammogramProcedure(s): MM tomosynthesis screening BI Accession Number(s): [id number] cc: MICHAEL SIMPSON MD; Jennifer Sin CNM~ EXAMINATION: MM SCREENING DIGITAL BREAST TOMOSYNTHESIS, BILATERAL CLINICAL INFORMATION: Screening. Asymptomatic. The patient is status post bilateral breast reduction. COMPARISON: Mammography: This study is compared with prior exams dating back to 2020. There are no interval mammograms. TECHNIQUE: Digital breast tomosynthesis is performed in both the craniocaudal and mediolateral oblique views along with computer-aided detection (CAD). Synthesized 2D images are generated from the tomosynthesis. FINDINGS: There are scattered areas of fibroglandular density (ACR BI-RADS breast composition Category b). There are no significant masses, abnormal calcifications, or other abnormalities. Post reduction changes are present in each breast. MM/MM tomosynthesis screening BI IMPRESSION: No mammographic evidence of malignancy. ASSESSMENT: BI-RADS BI-RADS 2 - Benign Findings RECOMMENDATION: Routine annual mammography screening. 1 year F/U This examination should not preclude the clinical evaluation of a suspicious palpable abnormality. This patient's information was entered into a reminder system with a target due date for their next mammogram. Dictated By:Violetta Prescott MDSigned By:<Electronically signed by Violetta Prescott MD in OV>09/03/23820 DD/ 1250TD/TT: Patient: Viktoria Henry MR#: [id number] : 1985 Acct:[id number] Age/Sex: 36 / F ADM Date: 02/20/22 Loc: HO.HMGCX Attending Dr: Viktoria Chacon CNM Ordering Physician: Viktoria Chacon CNM Date of Service: 02/20/22 Procedure(s): US pelvic and transvaginal Accession Number(s): [id number] cc: Viktoria Chacon CNM~ EXAMINATION: US PELVIS CLINICAL INFORMATION: Excessive and frequent menstruation. COMPARISON: None TECHNIQUE: Ultrasound of the pelvis is performed using both transabdominal and transvaginal transducers along with Doppler. Transvaginal imaging is performed due to inadequate visualization transabdominally. FINDINGS: UTERUS: The uterus is anteverted and measures 9.6 cm in length, 4.7 cm in AP and 5.5 cm in transverse dimension. The double wall endometrial thickness is 0.97 cm. The uterus is smooth in contour and has normal myometrial echogenicity. No visible fibroid. ADNEXA: Both ovaries are visualized. There is normal color flow to the adnexa. There is no ovarian torsion. There is no pelvic ascites or fluid collection. Right ovary measures 2.7 x 1.5 x 2.2 cm and volume 4.6 mL. There is an anechoic cyst in the right adnexa lateral to the ovary measuring 2.3 x 2.2 x 2.6 cm. The ovary is unremarkable. Previously right ovary measured 3.5 x 2.8 x 2.5 cm and volume 12.8 mL. Left ovary measures 2.8 x 1.6 x 1.5 cm and volume 3.5 mL. There is a paraovarian cyst lateral to the ovary measuring 0.6 x 0.6 x 0.6 cm. Previously left ovary measured 2.4 x 2.0 x 1.5 cm and volume 3.8 mL. There is no free fluid in the cul-de-sac. There is no free fluid in the cul-de-sac. US/US pelvic and transvaginal IMPRESSION: Bilateral paraovarian cyst. The ovaries are unremarkable. The uterus is unremarkable. There is no free fluid in cul-de-sac. Dictated By: Ayan Echeverria MD Signed By: <Electronically signed by Ayan Echeverria MD in OV> 02/21/22 1625 DD/ 1342 TD/TT: Agricultural Engineering Technicians: ASMITA Assessment & Plan Assessment & Plan (1) Gonorrhea: Comment: positive 08/18/23- NOTE PATIENT SITES PENICILLIN ALLERGY. PLAN FOR TREATMENT REVIEWED AND DISCUSSED AND PATIENT EVENTUALLY TREATED WITH ALTERNATIVE PER CDC-GENTAMICIN AND AZITHROMYCIN,.. Code(s): A54.9 - Gonococcal infection, unspecified (2) Cervical cancer screening: Comment: 08/18/2023 PAP IS NEGATIVE WITH NEGATIVE HPV, Code(s): Z12.4 - Encounter for screening for malignant neoplasm of cervix (3) S/P panniculectomy: Comment: March 2022, [place] Code(s): Z98.890 - Other specified postprocedural states (4) Hx of gastric bypass: Code(s): Z98.84 - Bariatric surgery status (5) Anemia: Code(s): D64.9 - Anemia, unspecified Plan Extensive discussion. While this may be early to do the test of cure test of cure was done today patient stated that if this 1 comes back positive she wants to be treated with the first-line treatment regardless of the penicillin allergy and she would wait and stick around to see if there is any reaction and I did discuss that if became to that if there were any reaction she would need to go straight to the emergency room. Also discussed her anemia there may be several causes for it she is undergoing treatment for that and also investigation and seeing bariatric so as well and she is probably also going to see GI. In the meantime she is on iron and discussed ways to manage constipation and iron rich diet she is hoping to move into her own apartment at the beginning of next month and will have cooking facilities for the 1st time in a long time and will be working on meal planning and will get nutrition guidance from the anaesthetic technician and dietitian is at work where she works in a [employer]. She wants to make a follow-up appointment. I also discussed with her that if it develops that she feels her periods are in fact heavier than she feels they are now that a Mirena can sometimes make them brush loader and handle attacher even though she does not need a Mirena from a controls point of view. Additionally I reviewed her mammogram with her and her previous ultrasounds which did not show fibroids though she thought they did.. Orders: Orders CT NG by PCR Today Z20.2 - Contact with and (suspected) exposure to infections with a predominantly sexual mode of transmission Bacterial Vaginosis Panel Today Z20.2 - Contact with and (suspected) exposure to infections with a predominantly sexual mode of transmission Coding Level of Care Code Est Pt Level 3 (74118) Diagnoses Gonorrhea A54.9 Cervical cancer screening Z12.4 S/P panniculectomy Z98.890 Hx of gastric bypass Z98.84 Anemia D64.9
== END 2023-09-04 13:56 | disposition home or self-care (01) ==
LOC: HO.HWSM 13:17
PROVIDERS: PCP Internal Medicine; Visit Provider Advanced Practice Midwife
DX: A54.9 Gonococcal infection, unspecified (principal); Z12.4 Encounter for screening for malignant neoplasm of cervix; Z98.890 Other specified postprocedural states; Z98.84 Bariatric surgery status; D64.9 Anemia, unspecified
CPT/HCPCS: 99213

== ENCOUNTER 2023-10-16 14:14 | Outpatient (AMB) | payer OTHER, SELFPAY ==
--- NOTE | 2023-10-16 14:18 | MHC.OFFVIS ---
Intake Vital Signs 10/16/23 14:22 Height 5 ft 6 in Weight 210 lb BMI 33.9 BP 96/49 L Blood Pressure Location Lt brachial Position Sitting Pulse 80 Intake Visit Reasons: Anemia Intake Note: New consult for Anemia Patient cc: abdominal bloating, acid reflex with some burning sensation on her stomach and really gassy, constipation and some swallowing pain on and off. Dizziness, fatigue and tiredness due her Anemia. Water Quality Manager Required: No Accompanied by: Self / Same As Patient Allergies codeine [CODEINE] Allergy (Unknown, Verified 10/16/23 14:17) THROAT SWELLING latex [LATEX] Allergy (Unknown, Verified 10/16/23 14:17) HIVES penicillin V Allergy (Unknown, Verified 10/16/23 14:17) redness and itching Penicillins [PENICILLINS] Allergy (Unknown, Verified 10/16/23 14:17) HIVES pollen extracts [POLLEN] Allergy (Unknown, Verified 10/16/23 14:17) ITCHY EYES, SNEEZING HPI HPI Comments History of Present Illness Details This is a 38y.o F with PMH of RYGB in 2019 who is here for iron deficiency. Pt reports fatigue and feeling tired most of the time. Otherwise does not have any gastrointestinal symptoms to include abdominal pain, nausea, vomiting, change in bowel habits. Currently on p.o. iron supplement through her bariatric surgery office Does have a heavy menstrual cycle, changes every 3-4 hours despite using extra large pads. Tells me that will be considering Mirena in the near future for her heavy periods. [facility] Medical History Lupus Hx of obesity Surgical History H/O neck surgery Hx of tubal ligation Hx of cholecystectomy Hx of tonsillectomy Hx of gastric bypass Family History Father Diabetes mellitus Hx of heart disorder Mother High cholesterol Social History (Updated 10/16/23 @ 14:18 by Magui Snowden) Household Members: Family Alcohol intake: current Alcohol intake frequency: holidays/special occasions only Patient Tobacco Use Status: Former Tobacco user Substance Use Type: Marijuana Female Reproductive History Menstrual Age of Menarche: 10 Review of Systems Const All systems reviewed & are unremarkable except as noted in HPI and below Physical Exam Vital Signs: Last Vital Signs Pulse 80 10/16/23 14:22 BP 96/49 L 10/16/23 14:22 BMI result Body Mass Index 33.9 Gen appear: NAD HEENT: nonicteric, no cervical lymphadenopathy Chest: CTA CVS: Regular S1/S2 Abd: soft, nontender, nondistended, bowel sounds + Ext: no peripheral edema Neuro: A/Ox3, noted to move all extremities spontaneously Psych: interacting appropriately Assessment & Plan Assessment & Plan (1) Iron deficiency: Code(s): E61.1 - Iron deficiency (2) Hx of acute myocardial infarction: Code(s): I25.2 - Old myocardial infarction (3) Heavy menstrual bleeding: Code(s): N92.0 - Excessive and frequent menstruation with regular cycle (4) Hx of gastric bypass: Code(s): Z98.84 - Bariatric surgery status Plan Has iron-deficiency anemia likely in the setting of malabsorption due to [place] gastric bypass status as well as from menstrual losses. Plan: -will favor IV replacement with Venofer -recheck labs 4 weeks after Venofer infusions completed -if iron-deficiency not corrected as expected, will proceed with GI workup including bidirectional endoscopy. Patient reports history of [place] in July 2023 (was seen at [facility]), and has not had any cardiology follow-up since. Will need this before proceeding with any endoscopy, as needed. Follow-up in 10-12 weeks Orders: Orders Complete Blood Count no Diff 2 Months E61.1 - Iron deficiency IRON PROFILE 2 Months E61.1 - Iron deficiency Ferritin 2 Months E61.1 - Iron deficiency Vitamin D 25-OH Total 2 Months E61.1 - Iron deficiency Coding Level of Care Code New Pt Level 4 (54957) Diagnoses Iron deficiency E61.1 Hx of acute myocardial infarction I25.2 Heavy menstrual bleeding N92.0 Hx of gastric bypass Z98.84
[2023-10-16 14:22] VITALS: BP 96/49; PULSE 80; BMI 33.9
== END 2023-10-16 15:04 | disposition home or self-care (01) ==
PROVIDERS: PCP Internal Medicine; Visit Provider Internal Medicine
DX: E61.1 Iron deficiency (principal); I25.2 Old myocardial infarction; N92.0 Excessive and frequent menstruation with regular cycle; Z98.84 Bariatric surgery status
CPT/HCPCS: 99204

== ENCOUNTER → 2023-10-16 14:14 | Outpatient (BNVA) | payer OTHER, SELFPAY | PROVIDERS: PCP Internal Medicine; Visit Provider Internal Medicine | DX: E61.1 Iron deficiency (principal); I25.2 Old myocardial infarction; N92.0 Excessive and frequent menstruation with regular cycle; Z98.84 Bariatric surgery status | CPT/HCPCS: 99202 ==

== ENCOUNTER 2023-10-27 09:14 | Outpatient (REF) | payer OTHER, SELFPAY ==
[2023-10-27 10:13] LABS: Hematocrit 33.6 % (37.0-47.0); Hemoglobin 9.9 g/dl (12.0-16.0); Mean Corpuscular HGB Conc 29.5 g/dl (31.0-35.0); Mean Corpuscular Hemoglobin 22.2 pg (27.0-33.0); Mean Corpuscular Volume 75.5 fL (80.0-98.0); Mean Platelet Volume 10.3 fL (9.4-12.3); Platelet Count 314 X10*3/uL (160-400); Red Blood Count 4.45 X10*6/uL (4.20-5.50); White Blood Count 6.6 X10*3/uL (4.8-10.8)
[2023-10-27 10:55] LABS: Iron 25 mcg/dL (30-160); Percent Iron Saturation 7 % (15-50); Total Iron Binding Capacity 335 mcg/dL (228-428); Unsaturated Iron Binding 310 ug/dL
[2023-10-27 11:13] LABS: Ferritin 6 ng/mL (10-250); Vitamin D 25-OH Total 23.3 ng/mL (>30)
== END 2023-10-27 09:15 | disposition home or self-care (01) ==
LOC: HO.LAB 09:14
PROVIDERS: PCP Internal Medicine; Visit Provider Internal Medicine
DX: E61.1 Iron deficiency (principal)
CPT/HCPCS: 36415; 82306; 82728; 83540; 85027

== ENCOUNTER 2023-11-06 12:12 | Outpatient (REF) | payer OTHER, SELFPAY ==
[2023-11-06 13:23] VITALS: BP 122/55; PULSE 79; RESP 18; TEMP 36.6
[2023-11-06] MEDS: Iron Sucrose Complex 200 MG in 0.9 % Sodium Chloride 100 ML 440 MG IV (13:40)
[2023-11-06 13:53] VITALS: BMI 39.3
== END 2023-11-06 12:13 | disposition home or self-care (01) ==
LOC: HO.MDS 12:12
PROVIDERS: Visit Provider Internal Medicine
DX: D50.9 Iron deficiency anemia, unspecified (principal)
CPT/HCPCS: 96365; J1756

== ENCOUNTER 2023-11-11 11:11 | Outpatient (REF) | payer OTHER, SELFPAY ==
[2023-11-11 11:45] VITALS: BP 105/77; PULSE 75; RESP 18; TEMP 36.6
[2023-11-11] MEDS: Iron Sucrose Complex 200 MG in 0.9 % Sodium Chloride 100 ML 440 MG IV (12:04)
== END 2023-11-11 11:12 | disposition home or self-care (01) ==
LOC: HO.MDS 11:11
PROVIDERS: Visit Provider Internal Medicine
DX: D50.9 Iron deficiency anemia, unspecified (principal)
CPT/HCPCS: 96365; J1756

== ENCOUNTER 2023-11-18 10:59 | Outpatient (REF) | payer OTHER, SELFPAY ==
[2023-11-18 11:01] VITALS: BP 98/39; PULSE 80; RESP 18; TEMP 36.7; O2SAT 100
[2023-11-18] MEDS: Iron Sucrose Complex 200 MG in 0.9 % Sodium Chloride 100 ML 440 MG IV (11:08)
== END 2023-11-18 11:00 | disposition home or self-care (01) ==
LOC: HO.MDS 10:59
PROVIDERS: Visit Provider Internal Medicine
DX: D50.9 Iron deficiency anemia, unspecified (principal)
CPT/HCPCS: 96365; J1756

== ENCOUNTER 2023-11-25 08:22 | Outpatient (REF) | payer OTHER, SELFPAY ==
[2023-11-25 08:26] VITALS: BP 105/43; PULSE 73; RESP 16; TEMP 36.6; O2SAT 100
[2023-11-25] MEDS: Iron Sucrose Complex 200 MG in 0.9 % Sodium Chloride 100 ML 440 MG IV (08:27)
== END 2023-11-25 08:23 | disposition home or self-care (01) ==
LOC: HO.MDS 08:22
PROVIDERS: Visit Provider Internal Medicine
DX: D50.9 Iron deficiency anemia, unspecified (principal); A54.9 Gonococcal infection, unspecified
CPT/HCPCS: 96374; 99212; J1756

== ENCOUNTER 2023-11-25 09:47 | Outpatient (AMB) | payer OTHER, SELFPAY ==
[2023-11-25 10:07] VITALS: BMI 38.8
--- NOTE | 2023-11-25 10:07 | MHC.OFFVIS ---
Intake Vital Signs 11/25/23 10:07 Height 5 ft 2 in Weight 212 lb BMI 38.8 Intake Visit Reasons: STD/? yeast Intake Note: has been taking antibiotics for her tooth, would like std, possible yeast infection has been feeling itchy, and has been having heavy periods Company Secretary Required: No Information Interpreted: non-clinical & clinical Winch Truck Operator: Winch Truck Operator Present (Zayrayn) Allergies codeine [CODEINE] Allergy (Unknown, Verified 11/25/23 10:08) THROAT SWELLING latex [LATEX] Allergy (Unknown, Verified 11/25/23 10:08) HIVES penicillin V Allergy (Unknown, Verified 11/25/23 10:08) redness and itching Penicillins [PENICILLINS] Allergy (Unknown, Verified 11/25/23 10:08) HIVES pollen extracts [POLLEN] Allergy (Unknown, Verified 11/25/23 10:08) ITCHY EYES, SNEEZING Medication List - Last Reconciled 11/25/23 by Jennifer Sin CNM amitriptyline 10 mg PO BEDTIME cholecalciferol (vitamin D3) 1,250 mcg PO QWEEK gabapentin 600 mg PO DAILY PRN gentamicin 80 mg (2 mL) IM ONCE 1 day hydroxyzine HCl 25 mg PO iron,carbonyl-vitamin C 65 mg iron- 125 mg (Vitron-C) 1 tab PO BEDTIME multivitamin 1 tab PO DAILY pantoprazole 40 mg PO DAILY sucralfate (Carafate) 1 g PO BID vitamin A palmitate 3,000 mcg PO DAILY Is last menstrual period known: Yes Last menstrual period: 11/16/23 Post menopausal: No HPI STD/? yeast HPI Details Patient is here because she wants to get checked free yeast she was on antibiotics for tooth infection and and then she started itching she had had gonorrhea in the fall so she also wants to get checked for STDs though she says she went back with her or her ex-. Also she wants to talk about heavy periods she has been having lots of blood clots with her periods and she is anemic and the GI doctor told her that she should good to something to stop the heavy periods 1st before they do what is more test to see if she is bleeding from her GI system. She might in me that she had a heart attack last year but she says she has not on any meds for that accept baby aspirin and she denies being on any meds that would interfere with fluconazole which she wants to take for the yeast she is just having a little bit of itching around the introitus. She uses pads for her. Because she feels tampons are uncomfortable. [facility] Medical History Lupus Hx of obesity Surgical History H/O neck surgery Hx of tubal ligation Hx of cholecystectomy Hx of tonsillectomy Hx of gastric bypass Family History Father Diabetes mellitus Hx of heart disorder Mother High cholesterol Social History Household Members: Family Alcohol intake: current Alcohol intake frequency: holidays/special occasions only Patient Tobacco Use Status: Former Tobacco user Substance Use Type: Marijuana Female Reproductive History Menstrual Age of Menarche: 10 Duration of menses: 3-5 days Date of last menstrual period: 11/16/23 control method: other (tubal ligation) Date of last pap smear: 08/19/23 (negative) Physical Exam Vital Signs: BMI result Body Mass Index 38.8 Other: No extreme erythema noted at all mucosa looks pink and healthy discharge is clear. External Female Exam: normal external appearance and normal appearance of the urethra Speculum Exam - Vagina: normal appearance of the vagina and normal vaginal discharge Speculum Exam - Cervix: normal appearance of the cervix and Cervical os closed Assessment & Plan Assessment & Plan (1) Gonorrhea: Comment: positive 08/18/23- NOTE PATIENT SITES PENICILLIN ALLERGY. PLAN FOR TREATMENT REVIEWED AND DISCUSSED AND PATIENT EVENTUALLY TREATED WITH ALTERNATIVE PER CDC-GENTAMICIN AND AZITHROMYCIN,.. Code(s): A54.9 - Gonococcal infection, unspecified (2) Hx of acute myocardial infarction: Code(s): I25.2 - Old myocardial infarction (3) Iron deficiency: Code(s): E61.1 - Iron deficiency (4) Cervical cancer screening: Comment: 08/18/2023 PAP IS NEGATIVE WITH NEGATIVE HPV, Code(s): Z12.4 - Encounter for screening for malignant neoplasm of cervix (5) Hx of tubal ligation: Code(s): Z98.51 - Tubal ligation status (6) Potential exposure to STD: Code(s): Z20.2 - Contact with and (suspected) exposure to infections with a predominantly sexual mode of transmission (7) Vaginal itching: Code(s): N89.8 - Other specified noninflammatory disorders of vagina (8) Heavy menstrual bleeding: Code(s): N92.0 - Excessive and frequent menstruation with regular cycle Plan Testing for gonorrhea chlamydia trich Gardnerella and yeast done patient appears to have very healthy normal mucus today but we will await test results in the meantime she did request a treatment I offered Monistat cream but she would prefer the fluconazole I cautioned her about the interaction with her medications and recommend that she avoid use of the hydroxyzine for several days before during and after treatment with the fluconazole. There is potential cardiac rhythm side effect. Teaching done about STIs and that if she were considering a Mirena IU S which she was she would need to be 100% sure that she was safe from STIs and if she acquired gonorrhea with an IUD in there that would not be a good idea and the condoms would be a fairly good idea if she has any doubt whatsoever about partner fidelity. For heavy periods that are regular and not abnormal in any other way a Mirena may be a good consideration it would need to be inserted at the beginning of her. But we will await STI testing 1st. Prescription sent for the fluconazole. Orders: Orders CT NG by PCR Today A54.9 - Gonococcal infection, unspecified Bacterial Vaginosis Panel Today Z20.2 - Contact with and (suspected) exposure to infections with a predominantly sexual mode of transmission Medications: New fluconazole may repeat second dose 72 hrs after first dose if symptoms persist 150 mg PO Q3D 2 doses 2 tabs 0RF Coding Level of Care Code Est Pt Level 4 (54427) Diagnoses Gonorrhea A54.9 Hx of acute myocardial infarction I25.2 Iron deficiency E61.1 Cervical cancer screening Z12.4 Hx of tubal ligation Z98.51 Potential exposure to STD Z20.2 Vaginal itching N89.8 Heavy menstrual bleeding N92.0
== END 2023-11-25 11:06 | disposition home or self-care (01) ==
LOC: HO.HWSM 09:47
PROVIDERS: PCP Internal Medicine; Visit Provider Advanced Practice Midwife
DX: A54.9 Gonococcal infection, unspecified (principal); I25.2 Old myocardial infarction; E61.1 Iron deficiency; Z12.4 Encounter for screening for malignant neoplasm of cervix; Z98.51 Tubal ligation status; Z20.2 Contact with and (suspected) exposure to infections with a predominantly sexual mode of transmission; N89.8 Other specified noninflammatory disorders of vagina; N92.0 Excessive and frequent menstruation with regular cycle
CPT/HCPCS: 99214

== ENCOUNTER 2023-11-25 10:49 | Outpatient (REF) | payer OTHER, SELFPAY ==
[2023-11-26 11:31] LABS: CT PCR NOT DETECTED (Not Detect.); NG PCR NOT DETECTED (Not Detect.)
[2023-11-26 15:42] LABS: BV Int Neg Control Negative (Negative); BV Int Pos Control Positive (Positive)
== END 2023-11-25 10:50 | disposition home or self-care (01) ==
LOC: HO.LNP 10:49
PROVIDERS: Visit Provider Advanced Practice Midwife
DX: A54.9 Gonococcal infection, unspecified (principal); Z20.2 Contact with and (suspected) exposure to infections with a predominantly sexual mode of transmission
CPT/HCPCS: 0353U; 87480; 87510; 87660

== ENCOUNTER 2023-12-21 09:08 | Outpatient (REF) | payer OTHER, SELFPAY ==
[2023-12-21 09:51] LABS: Hematocrit 39.4 % (37.0-47.0); Hemoglobin 11.9 g/dl (12.0-16.0); Mean Corpuscular HGB Conc 30.2 g/dl (31.0-35.0); Mean Corpuscular Hemoglobin 24.5 pg (27.0-33.0); Mean Corpuscular Volume 81.2 fL (80.0-98.0); Mean Platelet Volume 10.6 fL (9.4-12.3); Platelet Count 298 X10*3/uL (160-400); Red Blood Count 4.85 X10*6/uL (4.20-5.50); Red Cell Distribution Width 20.9 % (11.0-16.0); White Blood Count 8.2 X10*3/uL (4.8-10.8)
[2023-12-21 10:33] LABS: Iron 59 mcg/dL (30-160); Percent Iron Saturation 19 % (15-50); Total Iron Binding Capacity 317 mcg/dL (228-428); Unsaturated Iron Binding 258 ug/dL
[2023-12-21 10:49] LABS: Ferritin 50 ng/mL (10-250)
== END 2023-12-21 09:09 | disposition home or self-care (01) ==
LOC: HO.LAB 09:08
PROVIDERS: PCP Internal Medicine; Visit Provider Internal Medicine
DX: E61.1 Iron deficiency (principal)
CPT/HCPCS: 36415; 82728; 83540; 85027

== ENCOUNTER 2023-12-23 09:06 | Outpatient (AMB) | payer OTHER, SELFPAY ==
--- NOTE | 2023-12-23 09:12 | MHC.OFFVIS ---
Intake Vital Signs 12/23/23 09:14 Height 5 ft 6 in Weight 213 lb 13.574 oz BMI 34.5 BP 102/50 L Blood Pressure Location Lt brachial Position Sitting Pulse 76 Intake Visit Reasons: 10 week follow up Intake Note: Viktoria presents in the office as a 10 week follow up. CC: She states that she is not really having any concerns at this time. 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 Pt reports fatigue and feeling tired most of the time. Otherwise does not have any gastrointestinal symptoms to include abdominal pain, nausea, vomiting, change in bowel habits. Currently on p.o. iron supplement through her bariatric surgery office Does have a heavy menstrual cycle, changes every 3-4 hours despite using extra large pads. Tells me that will be considering Mirena in the that she has not decided Patient reportsar future for her heavy periods. 12/23/23: Seen for follow-up. Has completed iron infusions. Labs reviewed, and iron deficiency has resolved. Patient reports that she has not yet decided if she will be getting the Mirena IUD, or will opt for a different hormone based contraceptive for management of menorrhagia. In addition, has also not seen cardiology yet. PFSH Medical History (Updated 12/23/23 @ 09:32 by Elle Stevenson MD) Lupus Hx of obesity Surgical History (Updated 12/23/23 @ 09:14 by EHSAN Charles) Hx of colonoscopy History of esophagogastroduodenoscopy (EGD) H/O neck surgery Hx of tubal ligation Hx of cholecystectomy Hx of tonsillectomy Hx of gastric bypass Family History Father Diabetes mellitus Hx of heart disorder Mother High cholesterol Social History Household Members: Family Alcohol intake: current Alcohol intake frequency: holidays/special occasions only Patient Tobacco Use Status: Former Tobacco user Substance Use Type: Marijuana Female Reproductive History Menstrual Age of Menarche: 10 Review of Systems Const All systems reviewed & are unremarkable except as noted in HPI and below Physical Exam Vital Signs: Last Vital Signs Pulse 76 12/23/23 09:14 BP 102/50 L 12/23/23 09:14 BMI result Body Mass Index 34.5 No acute distress Abdomen soft, nontender Alert oriented x3, normal gait Assessment & Plan Assessment & Plan (1) Iron deficiency: Code(s): E61.1 - Iron deficiency (2) Hx of acute myocardial infarction: Code(s): I25.2 - Old myocardial infarction (3) Heavy menstrual bleeding: Code(s): N92.0 - Excessive and frequent menstruation with regular cycle (4) Hx of gastric bypass: Code(s): Z98.84 - Bariatric surgery status Plan Had iron-deficiency anemia likely in the setting of malabsorption due to [place]-en-[place] gastric bypass status as well as from menstrual losses. This is now resolved with IV Venofer. In terms of ? history of NSTEMI last year, still not established with cardiology locally. Patient agreeable to getting referred to Cardiology here to [facility]. Plan: -reviewed with the patient, that as long as continues to have menorrhagia, she would continue periodic IV Venofer. -recheck CBC and iron studies in 3 months to decide timing of the next infusion -cardiology referral placed Follow-up contingent on lab results Orders: Orders Complete Blood Count no Diff Today E61.1 - Iron deficiency Ferritin 3 Months E61.1 - Iron deficiency IRON PROFILE 3 Months E61.1 - Iron deficiency Referrals Cardiology Referral I25.2 - Old myocardial infarction Coding Level of Care Code Est Pt Level 4 (13975) Diagnoses Iron deficiency E61.1 Hx of acute myocardial infarction I25.2 Heavy menstrual bleeding N92.0 Hx of gastric bypass Z98.84
[2023-12-23 09:14] VITALS: BP 102/50; PULSE 76; BMI 34.5
== END 2023-12-23 11:10 | disposition home or self-care (01) ==
PROVIDERS: PCP Internal Medicine; Visit Provider Internal Medicine
DX: E61.1 Iron deficiency (principal); I25.2 Old myocardial infarction; N92.0 Excessive and frequent menstruation with regular cycle; Z98.84 Bariatric surgery status
CPT/HCPCS: 99214

== ENCOUNTER → 2023-12-23 09:06 | Outpatient (BNVA) | payer OTHER, SELFPAY | PROVIDERS: PCP Internal Medicine; Visit Provider Internal Medicine | DX: E61.1 Iron deficiency (principal); I25.2 Old myocardial infarction; N92.0 Excessive and frequent menstruation with regular cycle; Z98.84 Bariatric surgery status | CPT/HCPCS: 99212 ==

== ENCOUNTER 2024-04-01 09:50 | Outpatient (REF) | payer OTHER, SELFPAY ==
[2024-04-01 10:07] LABS: Hemoglobin 12.2 g/dl (12.0-16.0); Mean Corpuscular HGB Conc 32.1 g/dl (31.0-35.0); Mean Corpuscular Hemoglobin 27.9 pg (27.0-33.0); Mean Platelet Volume 10.9 fL (9.4-12.3); Platelet Count 242 X10*3/uL (160-400); Red Blood Count 4.37 X10*6/uL (4.20-5.50); Red Cell Distribution Width 14.8 % (11.0-16.0); White Blood Count 7.1 X10*3/uL (4.8-10.8)
[2024-04-01 11:17] LABS: Ferritin 30 ng/mL (10-250); Iron 48 mcg/dL (30-160); Percent Iron Saturation 18 % (15-50); Total Iron Binding Capacity 273 mcg/dL (228-428); Unsaturated Iron Binding 225 ug/dL; Vitamin D 25-OH Total 28.3 ng/mL (>30)
== END 2024-04-01 09:51 | disposition home or self-care (01) ==
LOC: HO.LAB 09:50
PROVIDERS: PCP Internal Medicine; Visit Provider Internal Medicine
DX: E61.1 Iron deficiency (principal); E55.9 Vitamin D deficiency, unspecified
CPT/HCPCS: 36415; 82306; 82728; 83540; 85027

== ENCOUNTER 2024-04-04 09:54 | Outpatient (AMB) | payer OTHER, SELFPAY ==
--- NOTE | 2024-04-04 10:01 | MHC.OFFVIS ---
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 Allergies codeine [CODEINE] Allergy (Unknown, Verified 12/23/23 09:14) THROAT SWELLING latex [LATEX] Allergy (Unknown, Verified 12/23/23 09:14) HIVES penicillin V Allergy (Unknown, Verified 12/23/23 09:14) redness and itching Penicillins [PENICILLINS] Allergy (Unknown, Verified 12/23/23 09:14) HIVES pollen extracts [POLLEN] Allergy (Unknown, Verified 12/23/23 09:14) ITCHY EYES, SNEEZING Medication List - Last Reconciled 04/04/24 by Sarabjit Pedraza MD amitriptyline 10 mg PO BEDTIME aspirin (Adult Aspirin Regimen) 81 mg PO DAILY cholecalciferol (vitamin D3) 1,250 mcg PO QWEEK fluconazole 150 mg PO Q3D 2 doses gabapentin 600 mg PO DAILY PRN hydroxyzine HCl 50 mg PO TID PRN iron,carbonyl-vitamin C 65 mg iron- 125 mg (Vitron-C) 1 tab PO BEDTIME multivitamin 1 tab PO DAILY multivitamin with folic acid 400 mcg (Daily-Pineda (with folic acid)) 1 tab PO DAILY pantoprazole 40 mg PO DAILY sucralfate (Carafate) 1 g PO BID vitamin A palmitate 3,000 mcg PO DAILY HPI Comments Details: Viktoria was referred here from GI service because of prior reported history of NV. She says in July while she was driving to work and was near [place] she developed precordial chest pressure and she ended up going to [facility]. There she said she had serial blood work and was told she had elevated troponin and she underwent further imaging although I do not have any details of the records. She was told that she had a myocardial infarction at that point in time and was advised to take aspirin as she did not have any significant blockage by testing. She does not recall having a stress test. She does not recall having an echocardiogram. However she is not on any other medications. She has prior history of gastric bypass surgery. She has developed iron deficiency anemia and is currently getting iron therapy. She says that time when she had her event she was pretty stressed out with her personal life. Not sure if there was any diagnosis given her at that point in time. Need to obtain all the records. She has prior history of anxiety. She also has history of acid reflux disease. She is currently contemplating to undergo plastic surgery for liposuction. She says she does get intermittent episodes of chest tightness when she is anxious or angry. [facility] Medical History Lupus Hx of obesity Surgical History Hx of colonoscopy History of esophagogastroduodenoscopy (EGD) H/O neck surgery Hx of tubal ligation Hx of cholecystectomy Hx of tonsillectomy Hx of gastric bypass Family History Father Diabetes mellitus Hx of heart disorder Mother High cholesterol Social History Household Members: Family Alcohol intake: current Alcohol intake frequency: holidays/special occasions only Patient Tobacco Use Status: Former Tobacco user Substance Use Type: Marijuana Female Reproductive History Menstrual Age of Menarche: 10 Review of Systems Const Denies chills, Denies daytime sleepiness, Denies fatigue, Denies fever(s), Denies frequent falls, Denies poor appetite, Denies snoring, Denies stops breathing during sleep, Denies weakness, Denies weight gain and Denies weight loss Eyes Denies loss of vision ENT Denies dizziness and Denies hearing loss Card Reports chest pain at rest (Under stressful situations), Denies claudication, Denies leg edema, Denies lightheadedness, Denies palpitations, Denies dyspnea, Denies dyspnea on exertion and Denies orthopnea Resp Denies cough, Denies excessive phlegm production, Denies dyspnea, Denies dyspnea on exertion, Denies snoring and Denies wheezing GI Denies abdominal pain, Denies hematochezia, Denies change in bowel habits, Denies nausea and Denies vomiting Denies urinary frequency and Denies dysuria Musc Denies arthralgias, Denies muscle weakness, Denies numbness and Denies other (frequent falls) Skin/Breast Denies nail changes and Denies rash Neuro Denies Abnormal speech present, Denies dizziness, Denies frequent falls, Denies loss of vision, Denies memory loss, Denies numbness and Denies weakness Psych Denies depression and Denies memory loss Endo Denies fatigue and Denies palpitations Adalid/Lymph Reports easy bruising and Reports other (anemia) Aller/Immun Denies wheezing Physical Exam Vital Signs: Last Vital Signs Pulse 72 04/04/24 10:03 BP 120/80 04/04/24 10:03 BMI result Body Mass Index 35.6 Neuro Speech: No Abnormal speech present Assessment & Plan Assessment & Plan (1) History of non-ST elevation myocardial infarction (NSTEMI): Code(s): I25.2 - Old myocardial infarction Category: Medical Plan: History of possible NSTEMI, unclear etiology. She has some testing done at [facility] and was advised aspirin therapy. However I do not have any details of the report. She says that she was told that she had does not have any significant obstructive disease, question she had a coronary CTA. Will obtain those records. Will also obtain if she had an echo and EKG and blood work done at that point time. Further treatment based on the records from [facility]. At this point time I do not anticipate any further testing unless anything was not done at her hospitalization July. She was advised aspirin therapy and at this point time advised her to continue the same although if she has no significant coronary disease given her iron deficiency anemia in the setting of prior gastric bypass surgery I would probably consider stopping her aspirin therapy. She is encouraged to continue to participate in regular physical activity and more aggressive nonsurgical weight loss program. Will follow up in the clinic if need be. Thank you for allowing me to partake in the care Coding Level of Care Code New Pt Level 4 (79033) Diagnoses History of non-ST elevation myocardial infarction (NSTEMI) I25.2
[2024-04-04 10:03] VITALS: BP 120/80; PULSE 72; BMI 35.6
== END 2024-04-04 10:39 | disposition home or self-care (01) ==
PROVIDERS: PCP Internal Medicine; Visit Provider Internal Medicine Cardiovascular Disease
DX: I25.2 Old myocardial infarction (principal)
CPT/HCPCS: 99204

== ENCOUNTER → 2024-04-04 09:54 | Outpatient (BNVA) | payer OTHER, SELFPAY | PROVIDERS: PCP Internal Medicine; Visit Provider Internal Medicine Cardiovascular Disease | DX: I25.2 Old myocardial infarction (principal) | CPT/HCPCS: 99202 ==

== ENCOUNTER 2024-04-27 13:10 | Outpatient (AMB) | payer OTHER, SELFPAY ==
--- NOTE | 2024-04-27 13:15 | MHC.OFFVIS ---
Vital Signs 04/27/24 13:16 Height 5 ft 6 in Weight 224 lb 13.944 oz BMI 36.3 BP 85/47 L Blood Pressure Location Lt brachial Position Sitting Pulse 75 Intake Visit Reasons: f/u lab work Intake Note: Viktoria presents in the office as a follow up for lab work. CC: She states she is here for results to her labs - no concerns. 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 Pt reports fatigue and feeling tired most of the time. Otherwise does not have any gastrointestinal symptoms to include abdominal pain, nausea, vomiting, change in bowel habits. Currently on p.o. iron supplement through her bariatric surgery office Does have a heavy menstrual cycle, changes every 3-4 hours despite using extra large pads. Tells me that will be considering Mirena in the that she has not decided Patient reportsar future for her heavy periods. 12/23/23: Seen for follow-up. Has completed iron infusions. Labs reviewed, and iron deficiency has resolved. Patient reports that she has not yet decided if she will be getting the Mirena IUD, or will opt for a different hormone based contraceptive for management of menorrhagia. In addition, has also not seen cardiology yet. 04/27/24: Here to review labs post iron infusions. Otherwise no active GI complaints. Seen by [facility] cardiology and based on their assessment: On 04/05/24 @ 11:54 Sarabjit Pedraza Wrote To Fatoumata Zelaya Her workup at [facility] was completely normal with normal coronary CTA and normal echocardiogram. No further workup is indicated at this time. Labs show resolution of iron deficiency with iron infusions but pt reports that her iron levels trend to drop more than expected if there is a gap between infusions. No overt GI bleeding. Menorrhagia is better managed now. PFSH Medical History Lupus Hx of obesity Surgical History Hx of colonoscopy History of esophagogastroduodenoscopy (EGD) H/O neck surgery Hx of tubal ligation Hx of cholecystectomy Hx of tonsillectomy Hx of gastric bypass Family History Father Diabetes mellitus Hx of heart disorder Mother High cholesterol Social History Household Members: Family Alcohol intake: current Alcohol intake frequency: holidays/special occasions only Patient Tobacco Use Status: Former Tobacco user Substance Use Type: Marijuana Female Reproductive History Menstrual Age of Menarche: 10 Review of Systems Const All systems reviewed & are unremarkable except as noted in HPI and below Physical Exam Vital Signs: Last Vital Signs Pulse 75 04/27/24 13:16 BP 85/47 L 04/27/24 13:16 BMI result Body Mass Index 36.3 No apparent distress Nonicteric Abdomen soft, nondistended Alert and oriented x3, normal gait Assessment & Plan Assessment & Plan (1) Iron deficiency: Code(s): E61.1 - Iron deficiency Category: Medical (2) Hx of acute myocardial infarction: Code(s): I25.2 - Old myocardial infarction Category: Medical (3) Hx of gastric bypass: Code(s): Z98.84 - Bariatric surgery status Category: Surgical Plan Had iron-deficiency anemia likely in the setting of malabsorption due to [place]-en-Y gastric bypass status as well as from menstrual losses. However pt reports that iron levels trickle down if spaces out infusions despite better control of menorrhagia. Will arrange for bidirectional endoscopy to r/o occult GI losses. Ok to proceed from cardiology standpoint. Plan: -EGD/colo to be booked on elective basis -PEG prep Rxed and instructions reviewed Follow up after endoscopy Medications: New peg 3350-electrolytes [id number] -5.86 gram (Golytely) as per split prep instructions, until fecal effluent is clear 240 mL PO Q10M 4,000 mL 0RF colonoscopy bisacodyl Take 2 tabs at noon and 2 at 6pm - day before colonoscopy. 10 mg (2 x 5 mg) PO BID 4 tabs 0RF 1 day Coding Level of Care Code Est Pt Level 4 (61365) Diagnoses Iron deficiency E61.1 Hx of acute myocardial infarction I25.2 Hx of gastric bypass Z98.84
[2024-04-27 13:16] VITALS: BP 85/47; PULSE 75; BMI 36.3
== END 2024-04-27 13:35 | disposition home or self-care (01) ==
PROVIDERS: PCP Internal Medicine; Visit Provider Internal Medicine
DX: E61.1 Iron deficiency (principal); I25.2 Old myocardial infarction; Z98.84 Bariatric surgery status
CPT/HCPCS: 99499

== ENCOUNTER → 2024-04-27 13:10 | Outpatient (BNVA) | payer OTHER, SELFPAY | PROVIDERS: PCP Internal Medicine; Visit Provider Internal Medicine ==

== ENCOUNTER 2024-06-16 07:30 | Outpatient (RCR) | payer OTHER, SELFPAY ==
[2024-06-09 13:15] VITALS: BP 110/69; PULSE 78; RESP 16; TEMP 36.6; O2SAT 98
[2024-06-09] MEDS: Iron Sucrose Complex 200 MG in 0.9 % Sodium Chloride 100 ML 440 MG IV (13:25)
[2024-06-14 07:54] VITALS: BP 114/69; PULSE 78; RESP 16; TEMP 36.1; O2SAT 98
[2024-06-14] MEDS: Iron Sucrose Complex 200 MG in 0.9 % Sodium Chloride 100 ML 440 MG IV (08:07)
[2024-06-16 07:25] VITALS: BP 103/57; PULSE 85; RESP 18; TEMP 36.7
[2024-06-16] MEDS: Iron Sucrose Complex 200 MG in 0.9 % Sodium Chloride 100 ML 440 MG IV (07:54)
== END 2024-06-16 09:47 | disposition home or self-care (01) ==
LOC: HO.INF 07:30
PROVIDERS: Visit Provider Internal Medicine
DX: E61.1 Iron deficiency (principal)
CPT/HCPCS: 96365; J1756